=== PATIENT | female | born 1975 | race Caucasian/White ===

== ENCOUNTER 2017-03-23 13:13 | Emergency (ER) | payer SELFPAY ==
[2017-03-23 13:37] VITALS: RESP 18; O2SAT 97
--- NOTE | 2017-03-23 14:03 | EDPHY ---
H & P Stated Complaint: med clear for ATC -etoh Time Seen by Provider: 03/23/17 14:02 - Personal History LMP (Females 10-55): Unknown Current Tetanus/Diphtheria Vaccine: Unsure Current Tetanus Diphtheria and Acellular Pertussis (TDAP): Unsure - Medical/Surgical History Hx Asthma: No Hx Chronic Respiratory Disease: No Hx Diabetes: No Hx Cardiac Disease: No Hx Renal Disease: No Hx Cirrhosis: No Hx Alcoholism: Yes Hx HIV/AIDS: No Hx Splenectomy or Spleen Trauma: No Other PMH: Thyroid tumor benign - Social History Smoking Status: Current every day smoker Constitutional: Initial Vital Signs Temperature (C) 37.0 C 03/23/17 13:34 Heart Rate 109 H 03/23/17 13:34 Respiratory Rate 18 03/23/17 13:34 Blood Pressure 170/85 H 03/23/17 13:34 O2 Sat (%) 97 03/23/17 13:34 O2 Delivery Mode Room Air Allergies/Adverse Reactions: acetaminophen [From Percocet] Allergy (Verified 11/29/12 16:46) oxycodone HCl [From Percocet] Allergy (Verified 11/29/12 16:46) Home Medications: Medication Instructions Recorded NK [No Known Home Meds] 03/23/17 Medical Decision Making ED Course/Re-evaluation: CHIEF COMPLAINT: Alcohol intoxication. "Here to get Librium." HISTORY OF PRESENT ILLNESS: The patient is a 42 y/o female with chronic alcoholism arriving via EMS from the [facility] "to get Librium." She has no acute complaints and arrived at the [facility] voluntarily to detox. She reports drinking 1 pint of vodka daily at baseline. Her last drink was this morning. Patient denies any injuries denies loss of consciousness denies any recent trauma. Patient denies co-ingestion. Patient denies suicidal or homicidal behavior. No history of alcohol withdrawal seizures. No benzodiazepine use. REVIEW OF SYSTEMS: A 10 point review of systems was performed and is negative with the exception of the elements mentioned in the history of present illness. PHYSICAL EXAM: General Appearance: Alert, well hydrated, appropriate, and non-toxic appearing. Head: Atraumatic without scalp tenderness or obvious injury Eyes: Pupils equal, round, reactive to light and accommodation, EOMI, no trauma , no injection. Nose: Atraumatic, no rhinorrhea, clear. Throat: Mucus membranes moist. Neck: Supple Respiratory: No retractions, no distress, no wheezes, and no accessory muscle use. Lungs are clear to auscultation bilaterally. Cardiovascular: Regular rate and rhythm, no murmurs, rubs, or gallops. Good capillary refill all extremities. Gastrointestinal: Abdomen is soft, nontender, non-distended, no masses, no rebound, no guarding, no peritoneal signs. Musculoskeletal: Normal active ROM of all extremities, atraumatic. Neurological: Alert, appropriate, and interactive. The patient has non-focal cranial nerves, motor, sensory, and cerebellar exam. Skin: No rashes, good turgor, no nodules on palpation. PAST MEDICAL HISTORY: Alcoholism PAST SURGICAL HISTORY: Noncontributory SOCIAL HISTORY: 1 pint of Vodka daily. Employed. DIFFERENTIAL DIAGNOSIS: The differential diagnosis for the patient's symptoms included but was not limited to alcohol intoxication, alcohol abuse, other intoxicants, alcohol withdrawal. MEDICAL DECISION MAKING: I serially examined this patient since the patient's arrival here in the emergency department. The patient continues to become more and more sober with each examination. I serially questioned the patient and the patient's story given initially has not changed. The patient still denies any trauma, any head injury, and any illicit drug use. At this point, the patient is walking the department freely and is clinically sober. We're discharging the patient to the [facility] in stable condition with Librium. Departure - Departure Disposition: Home, Routine, Self-Care Clinical Impression: Alcohol abuse Condition: Good Instructions: Abuse of Alcohol (DC) Additional Instructions: Medically clear for detox. Go directly to the [facility]. Take Librium as directed for alcohol withdrawal. Referrals: NONE *PRIMARY CARE P,. [Primary Care Provider] - As per Instructions [facility] Detox 24 Hours [Outside] - As per Instructions Report Scribed for: Saud Adams Report Scribed by: Jenny Mcneill Date of Report: 03/23/17 Time of Report: 14:31
[2017-03-23] MEDS ORDERED: CHLORDIAZEPOXIDE 25MG PREPK#6 BTL TAKEHOME ONE (14:29)
[2017-03-23 14:38] VITALS: BP 166/95; PULSE 105; TEMP 97.5
== END 2017-03-23 14:46 | disposition home or self-care (01) ==
DX: F10.10 Alcohol abuse, uncomplicated (principal); F17.200 Nicotine dependence, unspecified, uncomplicated